=== PATIENT | female | born 1930 | race Caucasian/White ===

== ENCOUNTER → 2017-09-14 | Outpatient (CLI) | payer MEDICARE | END | disposition home or self-care (01) | LOC: CFH 11:55 | PROVIDERS: ATTEND Nurse Practitioner Primary Care | DX: M51.36 Other intervertebral disc degeneration, lumbar region (principal); M12.88 Other specific arthropathies, not elsewhere classified, other specified site | CPT/HCPCS: 72100 ==

== ENCOUNTER 2017-09-15 09:59 | Emergency (ER) | payer MEDICARE ==
[~2017-09-15] VITALS: Ht 160 cm; Wt 50.3 kg
[2017-09-15] MEDS ORDERED: MAGNESIUM CITRATE 300ML ORAL SOL PO ONE (10:30)
[2017-09-15] MEDS ORDERED: MAGNESIUM CITRATE 300ML ORAL SOL ONE (10:38)
[2017-09-15] MEDS ORDERED: BISACODYL 10 MG SUPP ONE (12:35)
[2017-09-15] MEDS ORDERED: BISACODYL 10 MG SUPP PR ONE (13:00)
[2017-09-15 13:40] VITALS: BP 148/73
== END 2017-09-15 14:46 | disposition home or self-care (01) ==
LOC: ED 14:40
DX: K59.00 Constipation, unspecified (principal)
CPT/HCPCS: 74021; 74176; 99284

== ENCOUNTER 2020-08-06 09:29 | Outpatient (CLI) | payer MEDICARE | END 2020-08-06 23:59 | disposition home or self-care (01) | LOC: RAD 09:29 | PROVIDERS: ATTEND Internal Medicine Cardiovascular Disease | DX: R13.12 Dysphagia, oropharyngeal phase (principal) | CPT/HCPCS: 74230 ==